=== PATIENT | female | born 1990 | race Two or more races ===

== ENCOUNTER 2017-10-27 13:15 | Inpatient (IN) | payer OTHER ==
[~2017-10-27] VITALS: Ht 167.6 cm; Wt 83.5 kg
[2017-11-16] MEDS ORDERED: PRENATAL TABLE1 EAC1 PO (07:38)
== END 2017-11-18 15:01 | DRG 775 ==
LOC: LDR 11-16 06:42 → OB/GYN 11-16 06:42 → SURG 11-17 13:15 → OB/GYN 11-18 15:01
PROC: 10E0XZZ Delivery of Products of Conception, External Approach (ICD-10-PCS; principal; 2017-11-16)
PROC: 3E0P7VZ Introduction of Hormone into Female Reproductive, Via Natural or Artificial Opening (ICD-10-PCS; 2017-11-16)
PROC: 3E033VJ Introduction of Other Hormone into Peripheral Vein, Percutaneous Approach (ICD-10-PCS; 2017-11-16)
PROC: 10907ZC Drainage of Amniotic Fluid, Therapeutic from Products of Conception, Via Natural or Artificial Opening (ICD-10-PCS; 2017-11-16)
PROC: 4A033R1 Measurement of Arterial Saturation, Peripheral, Percutaneous Approach (ICD-10-PCS; 2017-11-16)
PROC: 4A1HXCZ Monitoring of Products of Conception, Cardiac Rate, External Approach (ICD-10-PCS; 2017-11-16)
DX: O14.14 Severe pre-eclampsia complicating childbirth (principal); Z3A.39 39 weeks gestation of pregnancy; Z37.0 Single live birth

== ENCOUNTER 2019-04-21 15:31 | Inpatient (IN) | payer OTHER ==
[~2019-04-21] VITALS: Ht 167.6 cm; Wt 2.7 kg
[~2019-04-21 15:31] MED LIST: PRENATAL TABLE1 EAC1 PO
== END 2019-05-25 13:07 | disposition home or self-care (01) | DRG 785 ==
LOC: OB/GYN 05-17 15:15 → LDR 05-21 22:36 → OB/GYN 05-21 22:36 → LDR 05-27 15:15
PROVIDERS: ADMIT Obstetrics & Gynecology
PROC: 0UT70ZZ Resection of Bilateral Fallopian Tubes, Open Approach (ICD-10-PCS; 2019-05-22)
PROC: 4A1HXFZ Monitoring of Products of Conception, Cardiac Rhythm, External Approach (ICD-10-PCS; 2019-05-22)
PROC: 4A033R1 Measurement of Arterial Saturation, Peripheral, Percutaneous Approach (ICD-10-PCS; 2019-05-22)
PROC: 10D00Z1 Extraction of Products of Conception, Low, Open Approach (ICD-10-PCS; 2019-05-22)
PROC: 10D00Z1 Extraction of Products of Conception, Low, Open Approach (ICD-10-PCS; principal; 2019-05-22 12:00)
DX: O65.4 Obstructed labor due to fetopelvic disproportion, unspecified (principal); Z3A.39 39 weeks gestation of pregnancy; Z37.0 Single live birth; O69.81X0 Labor and delivery complicated by cord around neck, without compression, not applicable or unspecified; Z30.2 Encounter for sterilization